=== PATIENT | male | born 1955 | race Caucasian/White ===

== ENCOUNTER 2024-04-01 15:12 | Inpatient (IN) | payer MEDICARE, MEDICAID ==
[~2024-04-01] VITALS: Ht 182.9 cm; Wt 68.7 kg
[2024-04-01] MEDS ORDERED: ACETAMINOPHEN 325 MG TAB PO PRN (16:45)
[2024-04-01 17:00] VITALS: BP 107/68; TEMP 97.9
[2024-04-01 17:42] LABS: INR 1.05
[2024-04-01 18:20] LABS: HEMATOCRIT 46.3 % (42.0-52.0); HEMOGLOBIN 16.3 g/dl (13.5-17.5); MEAN CORPUSCULAR HEMOGLOBIN 30.8 pg (27.0-33.0); MEAN CORPUSCULAR HGB CONC 35.2 g/dl (32.0-36.5); MEAN CORPUSCULAR VOLUME 87.5 fl (80.0-96.0); PLATELET COUNT, AUTOMATED 273 10^3/uL (150-450); RED BLOOD COUNT 5.29 10^6/uL (4.30-6.10); WHITE BLOOD COUNT 15.8 10^3/uL (4.0-10.0)
[2024-04-01] MEDS ORDERED: HOME MED LIST COMPLETE! XX SCH (18:40)
[2024-04-01 18:48] LABS: ALBUMIN 2.8 G/DL (3.2-5.2); ALKALINE PHOSPHATASE 118 U/L (40-129); ALT/SGPT 19 U/L (7.0-40); AST/SGOT 28 U/L (<34); BILIRUBIN,TOTAL 0.3 MG/DL (0.3-1.2); BLOOD UREA NITROGEN 9 MG/DL (9-23); CALCIUM LEVEL 9.4 MG/DL (8.3-10.6); CARBON DIOXIDE LEVEL 31 MMOL/L (20-31); CHLORIDE LEVEL 99 MMOL/L (98-107); CREATININE FOR GFR 0.66 MG/DL (0.70-1.30); GLOMERULAR FILTRATION RATE > 60.0 (>49); GLUCOSE, FASTING 138 MG/DL (74-106); POTASSIUM SERUM 3.2 MMOL/L (3.5-5.1); SODIUM LEVEL 136 MMOL/L (136-145); TOTAL PROTEIN 6.2 G/DL (5.7-8.2)
[2024-04-01] MEDS: NS 1,000 ML IV SCH (18:55)
[2024-04-01 19:40] VITALS: BP 118/68; TEMP 97.7; O2SAT 88
[2024-04-01] MEDS: PANTOPRAZOLE 40MG VIAL IV SCH (20:02)
[2024-04-01] MEDS: POTASSIUM CHLORIDE 10% LIQ 20MEQ/15ML UDC PO ONE (20:02)
[2024-04-01] MEDS: KCL 10MEQ/100ML SWI (KRUN) 10 MEQ in IV 1 EA IV SCH (21:15)
[2024-04-01] MEDS: KETOROLAC 30 MG/ML 1ML VIAL IV ONE (21:15)
[2024-04-01 22:05] VITALS: O2SAT 83
[2024-04-01 22:10] VITALS: O2SAT 91
[2024-04-01 23:00] VITALS: O2SAT 96
[2024-04-01 23:38] VITALS: BP 118/63; TEMP 98; O2SAT 96
[2024-04-02] VITALS (11 sets, daily range): BP systolic 103–130; BP diastolic 60–69; TEMP 97–97.8; O2SAT 90–98
[2024-04-02 06:14] LABS: HEMATOCRIT 43.7 % (42.0-52.0); HEMOGLOBIN 15.3 g/dl (13.5-17.5); MEAN CORPUSCULAR HEMOGLOBIN 30.8 pg (27.0-33.0); MEAN CORPUSCULAR VOLUME 88.1 fl (80.0-96.0); PLATELET COUNT, AUTOMATED 239 10^3/uL (150-450); RED BLOOD COUNT 4.96 10^6/uL (4.30-6.10); WHITE BLOOD COUNT 13.5 10^3/uL (4.0-10.0)
[2024-04-02 06:41] LABS: ALBUMIN 2.5 G/DL (3.2-5.2); ALKALINE PHOSPHATASE 103 U/L (40-129); ALT/SGPT 18 U/L (7.0-40); AST/SGOT 26 U/L (<34); BILIRUBIN,TOTAL 0.4 MG/DL (0.3-1.2); BLOOD UREA NITROGEN 11 MG/DL (9-23); CALCIUM LEVEL 8.9 MG/DL (8.3-10.6); CARBON DIOXIDE LEVEL 27 MMOL/L (20-31); CHLORIDE LEVEL 101 MMOL/L (98-107); CREATININE FOR GFR 0.73 MG/DL (0.70-1.30); GLOMERULAR FILTRATION RATE > 60.0 (>49); GLUCOSE, FASTING 152 MG/DL (74-106); POTASSIUM SERUM 3.8 MMOL/L (3.5-5.1); SODIUM LEVEL 136 MMOL/L (136-145); TOTAL PROTEIN 5.3 G/DL (5.7-8.2)
[2024-04-02 07:45] LABS: CHOLESTEROL LEVEL 118 MG/DL (<200); CHOLESTEROL RISK RATIO 3.52 (<5); HDL CHOLESTEROL 33.5 MG/DL (>40); LDL CHOLESTEROL 67.9 MG/DL (<100); NON-HDL-C 84.5 MG/DL; TRIGLYCERIDES LEVEL 83 MG/DL (<150)
[2024-04-02 08:04] LABS: HEMOGLOBIN A1c 6.4 % (4.0-6.0)
[2024-04-02] MEDS ORDERED: D5W/0.9% SODIUM CHLORIDE 1,000 ML IV ONE (08:20)
[2024-04-02] MEDS ORDERED: GLUCAGON INJ 1MG VIAL SC PRN (08:50)
[2024-04-02] MEDS ORDERED: GLUCOSE 4 GM CHEW PO PRN (08:50)
[2024-04-02] MEDS ORDERED: DEXTROSE 50% 50ML SYRINGE IV PRN (08:50)
[2024-04-02] MEDS: D5W/0.9% SODIUM CHLORIDE 1,000 ML IV SCH (10:56)
[2024-04-02] MEDS: INSULIN LISPRO (NovoLOG) PER UNIT SC SCH (13:22)
[2024-04-02] MEDS: NICOTINE 21MG/24HR 1 EA TRANSDERMAL TD SCH (13:50)
[2024-04-03 03:53] VITALS: BP 123/72; TEMP 97.2; O2SAT 93
[2024-04-03 06:02] LABS: HEMATOCRIT 43.5 % (42.0-52.0); HEMOGLOBIN 15.1 g/dl (13.5-17.5); MEAN CORPUSCULAR HEMOGLOBIN 30.9 pg (27.0-33.0); MEAN CORPUSCULAR HGB CONC 34.7 g/dl (32.0-36.5); PLATELET COUNT, AUTOMATED 222 10^3/uL (150-450); RED BLOOD COUNT 4.89 10^6/uL (4.30-6.10); WHITE BLOOD COUNT 13.2 10^3/uL (4.0-10.0)
[2024-04-03 06:35] LABS: ALBUMIN 2.3 G/DL (3.2-5.2); ALKALINE PHOSPHATASE 93 U/L (40-129); ALT/SGPT 20 U/L (7.0-40); AST/SGOT 23 U/L (<34); BILIRUBIN,TOTAL 0.4 MG/DL (0.3-1.2); BLOOD UREA NITROGEN 11 MG/DL (9-23); CALCIUM LEVEL 8.4 MG/DL (8.3-10.6); CARBON DIOXIDE LEVEL 28 MMOL/L (20-31); CHLORIDE LEVEL 108 MMOL/L (98-107); CREATININE FOR GFR 0.57 MG/DL (0.70-1.30); GLOMERULAR FILTRATION RATE > 60.0 (>49); GLUCOSE, FASTING 194 MG/DL (74-106); POTASSIUM SERUM 3.7 MMOL/L (3.5-5.1); SODIUM LEVEL 139 MMOL/L (136-145); TOTAL PROTEIN 5.2 G/DL (5.7-8.2)
[2024-04-03] MEDS: INSULIN LISPRO (NovoLOG) PER UNIT SC SCH ×2 (07:30→20:06)
[2024-04-03 07:58] VITALS: BP 144/78; TEMP 97.6; O2SAT 94
[2024-04-03 16:25] VITALS: BP 144/82; TEMP 97.9; O2SAT 93
[2024-04-03 19:55] VITALS: BP 136/69; TEMP 97.5; O2SAT 95
[2024-04-04 04:16] VITALS: BP 132/68; TEMP 97.7; O2SAT 97
[2024-04-04 06:32] LABS: HEMATOCRIT 45.3 % (42.0-52.0); HEMOGLOBIN 15.5 g/dl (13.5-17.5); MEAN CORPUSCULAR HEMOGLOBIN 30.6 pg (27.0-33.0); MEAN CORPUSCULAR HGB CONC 34.2 g/dl (32.0-36.5); MEAN CORPUSCULAR VOLUME 89.3 fl (80.0-96.0); PLATELET COUNT, AUTOMATED 234 10^3/uL (150-450); RED BLOOD COUNT 5.07 10^6/uL (4.30-6.10); WHITE BLOOD COUNT 14.3 10^3/uL (4.0-10.0)
[2024-04-04 07:07] LABS: ALBUMIN 2.5 G/DL (3.2-5.2); ALKALINE PHOSPHATASE 98 U/L (40-129); ALT/SGPT 21 U/L (7.0-40); AST/SGOT 19 U/L (<34); BILIRUBIN,TOTAL 0.5 MG/DL (0.3-1.2); BLOOD UREA NITROGEN 12 MG/DL (9-23); CARBON DIOXIDE LEVEL 25 MMOL/L (20-31); CHLORIDE LEVEL 105 MMOL/L (98-107); CREATININE FOR GFR 0.56 MG/DL (0.70-1.30); GLOMERULAR FILTRATION RATE > 60.0 (>49); GLUCOSE, FASTING 136 MG/DL (74-106); POTASSIUM SERUM 3.7 MMOL/L (3.5-5.1); SODIUM LEVEL 140 MMOL/L (136-145); TOTAL PROTEIN 5.4 G/DL (5.7-8.2)
[2024-04-04 07:26] VITALS: BP 130/72; TEMP 97.5; O2SAT 94
[2024-04-04 12:00] VITALS: BP 139/79; TEMP 97.7; O2SAT 96
[2024-04-04 19:42] VITALS: BP 144/89; TEMP 97.2; O2SAT 96
[2024-04-05 04:27] VITALS: BP 145/86; TEMP 97; O2SAT 96
[2024-04-05 06:34] LABS: HEMATOCRIT 45.4 % (42.0-52.0); HEMOGLOBIN 15.7 g/dl (13.5-17.5); MEAN CORPUSCULAR HEMOGLOBIN 30.4 pg (27.0-33.0); MEAN CORPUSCULAR HGB CONC 34.6 g/dl (32.0-36.5); MEAN CORPUSCULAR VOLUME 87.8 fl (80.0-96.0); PLATELET COUNT, AUTOMATED 236 10^3/uL (150-450); RED BLOOD COUNT 5.17 10^6/uL (4.30-6.10)
[2024-04-05 07:01] LABS: ALBUMIN 2.6 G/DL (3.2-5.2); ALKALINE PHOSPHATASE 103 U/L (40-129); ALT/SGPT 21 U/L (7.0-40); AST/SGOT 19 U/L (<34); BILIRUBIN,TOTAL 0.6 MG/DL (0.3-1.2); BLOOD UREA NITROGEN 15 MG/DL (9-23); CARBON DIOXIDE LEVEL 25 MMOL/L (20-31); CHLORIDE LEVEL 103 MMOL/L (98-107); CREATININE FOR GFR 0.55 MG/DL (0.70-1.30); GLOMERULAR FILTRATION RATE > 60.0 (>49); GLUCOSE, FASTING 125 MG/DL (74-106); POTASSIUM SERUM 3.9 MMOL/L (3.5-5.1); SODIUM LEVEL 138 MMOL/L (136-145); TOTAL PROTEIN 5.5 G/DL (5.7-8.2)
[2024-04-05 08:00] VITALS: BP 119/73; TEMP 97.5; O2SAT 97
[2024-04-05 12:00] VITALS: BP 148/87; TEMP 97.5; O2SAT 95
[2024-04-05 20:31] VITALS: BP 134/74; TEMP 97.3
[2024-04-05 20:43] VITALS: BP 129/73; TEMP 97.2; O2SAT 97
[2024-04-06] MEDS: NS 1,000 ML IV SCH (00:38)
[2024-04-06 04:00] VITALS: BP 122/65; TEMP 97; O2SAT 96
[2024-04-06 06:46] LABS: EOS % 0.1 % (0.0-3.0); HEMATOCRIT 47.8 % (42.0-52.0); HEMOGLOBIN 16.1 g/dl (13.5-17.5); LYMPH # 1.3 10^3/uL (1.5-5.0); LYMPH % 12.2 % (24.0-44.0); MEAN CORPUSCULAR HEMOGLOBIN 30.3 pg (27.0-33.0); MEAN CORPUSCULAR HGB CONC 33.7 g/dl (32.0-36.5); MEAN CORPUSCULAR VOLUME 89.8 fl (80.0-96.0); MONO # 0.7 10^3/uL (0.0-0.8); MONO % 6.5 % (2.0-8.0); NEUTROPHILS # 8.4 10^3/uL (1.5-8.5); NEUTROPHILS % 80.4 % (36.0-66.0); PLATELET COUNT, AUTOMATED 243 10^3/uL (150-450); RED BLOOD COUNT 5.32 10^6/uL (4.30-6.10); WHITE BLOOD COUNT 10.5 10^3/uL (4.0-10.0)
[2024-04-06 07:05] LABS: BLOOD UREA NITROGEN 18 MG/DL (9-23); CALCIUM LEVEL 9.1 MG/DL (8.3-10.6); CARBON DIOXIDE LEVEL 27 MMOL/L (20-31); CHLORIDE LEVEL 105 MMOL/L (98-107); CREATININE FOR GFR 0.59 MG/DL (0.70-1.30); GLOMERULAR FILTRATION RATE > 60.0 (>49); GLUCOSE, FASTING 127 MG/DL (74-106); POTASSIUM SERUM 4.1 MMOL/L (3.5-5.1); SODIUM LEVEL 138 MMOL/L (136-145)
[2024-04-06 11:20] VITALS: BP 124/70; TEMP 97.5; O2SAT 97
[2024-04-06] MEDS ORDERED: ISOVUE-370 76% 100ML VIAL As Ordered ONE (11:41)
[2024-04-06 19:50] VITALS: BP 113/71; TEMP 97.7; O2SAT 96
[2024-04-07 03:41] VITALS: BP 113/71; TEMP 97.9; O2SAT 96
[2024-04-07 06:39] LABS: BLOOD UREA NITROGEN 19 MG/DL (9-23); CALCIUM LEVEL 9.2 MG/DL (8.3-10.6); CARBON DIOXIDE LEVEL 24 MMOL/L (20-31); CHLORIDE LEVEL 105 MMOL/L (98-107); CREATININE FOR GFR 0.58 MG/DL (0.70-1.30); GLOMERULAR FILTRATION RATE > 60.0 (>49); GLUCOSE, FASTING 124 MG/DL (74-106); POTASSIUM SERUM 4.3 MMOL/L (3.5-5.1); SODIUM LEVEL 138 MMOL/L (136-145)
[2024-04-07 12:00] VITALS: BP 128/77; TEMP 97.5; O2SAT 96
[2024-04-07 20:14] VITALS: BP 128/77; TEMP 97.5; O2SAT 95
[2024-04-08 04:00] VITALS: BP 134/86; TEMP 97.7; O2SAT 93
[2024-04-08 05:49] LABS: BASO % 0.1 % (0.0-1.0); EOS % 0.2 % (0.0-3.0); HEMATOCRIT 47.1 % (42.0-52.0); HEMOGLOBIN 16.1 g/dl (13.5-17.5); LYMPH # 1.1 10^3/uL (1.5-5.0); LYMPH % 9.5 % (24.0-44.0); MEAN CORPUSCULAR HEMOGLOBIN 30.4 pg (27.0-33.0); MEAN CORPUSCULAR HGB CONC 34.2 g/dl (32.0-36.5); MEAN CORPUSCULAR VOLUME 88.9 fl (80.0-96.0); MONO # 0.7 10^3/uL (0.0-0.8); MONO % 6.1 % (2.0-8.0); NEUTROPHILS # 9.3 10^3/uL (1.5-8.5); NEUTROPHILS % 83.5 % (36.0-66.0); PLATELET COUNT, AUTOMATED 249 10^3/uL (150-450); WHITE BLOOD COUNT 11.1 10^3/uL (4.0-10.0)
[2024-04-08 06:15] LABS: BLOOD UREA NITROGEN 21 MG/DL (9-23); CALCIUM LEVEL 9.1 MG/DL (8.3-10.6); CARBON DIOXIDE LEVEL 27 MMOL/L (20-31); CHLORIDE LEVEL 104 MMOL/L (98-107); CREATININE FOR GFR 0.61 MG/DL (0.70-1.30); GLOMERULAR FILTRATION RATE > 60.0 (>49); GLUCOSE, FASTING 126 MG/DL (74-106); SODIUM LEVEL 139 MMOL/L (136-145)
[2024-04-08 12:00] VITALS: BP 120/71; TEMP 97.5; O2SAT 94
[2024-04-08] MEDS ORDERED: DEXA4TA PO (13:35)
[2024-04-08] MEDS ORDERED: PANT40TA29 PO (13:35)
== END 2024-04-08 15:15 | disposition home health service (06) | DRG 54 ==
LOC: M PCU 16:31 → M MS5PR 04-03 16:39
PROVIDERS: ADMIT Internal Medicine; ATTEND Hospitalist
DX: C79.31 Secondary malignant neoplasm of brain (principal); G93.41 Metabolic encephalopathy; G93.6 Cerebral edema; I61.9 Nontraumatic intracerebral hemorrhage, unspecified; E43 Unspecified severe protein-calorie malnutrition; C34.12 Malignant neoplasm of upper lobe, left bronchus or lung; C78.01 Secondary malignant neoplasm of right lung; C77.1 Secondary and unspecified malignant neoplasm of intrathoracic lymph nodes; C78.6 Secondary malignant neoplasm of retroperitoneum and peritoneum; C78.89 Secondary malignant neoplasm of other digestive organs; C79.71 Secondary malignant neoplasm of right adrenal gland; C78.7 Secondary malignant neoplasm of liver and intrahepatic bile duct; R64 Cachexia; R26.81 Unsteadiness on feet; E11.9 Type 2 diabetes mellitus without complications; J43.9 Emphysema, unspecified; R13.10 Dysphagia, unspecified; E86.0 Dehydration; Z68.20 Body mass index [BMI] 20.0-20.9, adult; Z87.891 Personal history of nicotine dependence

== ENCOUNTER 2024-04-13 08:57 | Outpatient (RCR) | payer MEDICAID, MEDICARE, OTHER ==
[~2024-04-13 08:57] MED LIST: DEXA4TA PO; PANT40TA29 PO
[2024-04-18] MEDS ORDERED: DEXA1TA PO (11:02)
== END 2024-04-16 ==
LOC: M ONCR 08:57
PROVIDERS: ATTEND General Practice
DX: Z51.0 Encounter for antineoplastic radiation therapy (principal); C79.31 Secondary malignant neoplasm of brain

== ENCOUNTER 2024-04-19 09:30 | Outpatient (RCR) | payer MEDICARE ==
[~2024-04-19 09:30] MED LIST changes: +DEXA1TA PO
[2024-04-21] MEDS ORDERED: OXYC1TAB23 PO (12:28)
[2024-04-27] MEDS ORDERED: LORA1TAB23 PO (10:00)
== END 2024-05-17 ==
LOC: M ONCR 09:30
PROVIDERS: ATTEND General Practice
DX: Z51.0 Encounter for antineoplastic radiation therapy (principal); C79.31 Secondary malignant neoplasm of brain

== ENCOUNTER → 2024-05-13 | Outpatient (CLI) | payer MEDICARE ==
[~2024-05-13] VITALS: Ht 182.9 cm; Wt 59.0 kg
[~2024-05-13] MED LIST changes: +LIDOCAINE 1% MDV 20ML VIAL As Ordered ONE; +LORA1TAB23 PO; +NS (Normal Saline) 0.9% 1,000 ML IV SCH; +OXYC1TAB23 PO; +ceFAZolin 2 GM/D5W 50 ML IV BAG As Ordered ONE; +ceFAZolin SOD 2 GM in IV 1 EA IV ONE
[2024-05-13 09:40] VITALS: TEMP 97.9
[2024-05-13 11:30] VITALS: BP 117/60; O2SAT 97
== END ==
LOC: M IRPRO 09:27
PROVIDERS: ATTEND Internal Medicine Medical Oncology
DX: C34.90 Malignant neoplasm of unspecified part of unspecified bronchus or lung (principal)
CPT/HCPCS: 36561; C1894; J0690; J1642

== ENCOUNTER 2024-05-19 12:26 | Outpatient (RCR) | payer MEDICARE ==
[2024-04-20 10:27] VITALS: BP 121/85; O2SAT 96
[2024-04-20 11:39] LABS: BASO % 0.1 % (0.0-1.0); EOS # 0.3 10^3/uL (0.0-0.5); EOS % 1.7 % (0.0-3.0); HEMATOCRIT 50.5 % (42.0-52.0); HEMOGLOBIN 17.1 g/dl (13.5-17.5); LYMPH # 1.2 10^3/uL (1.5-5.0); LYMPH % 7.8 % (24.0-44.0); MEAN CORPUSCULAR HEMOGLOBIN 30.9 pg (27.0-33.0); MEAN CORPUSCULAR HGB CONC 33.9 g/dl (32.0-36.5); MEAN CORPUSCULAR VOLUME 91.3 fl (80.0-96.0); MONO # 1.2 10^3/uL (0.0-0.8); MONO % 7.4 % (2.0-8.0); NEUTROPHILS # 12.8 10^3/uL (1.5-8.5); NEUTROPHILS % 82.4 % (36.0-66.0); PLATELET COUNT, AUTOMATED 225 10^3/uL (150-450); RED BLOOD COUNT 5.53 10^6/uL (4.30-6.10); WHITE BLOOD COUNT 15.5 10^3/uL (4.0-10.0)
[2024-04-20 12:12] LABS: ALBUMIN 2.2 G/DL (3.2-5.2); ALKALINE PHOSPHATASE 141 U/L (40-129); ALT/SGPT 12 U/L (7.0-40); AST/SGOT 13 U/L (<34); BILIRUBIN,TOTAL 0.8 MG/DL (0.3-1.2); BLOOD UREA NITROGEN 18 MG/DL (9-23); CALCIUM LEVEL 9.6 MG/DL (8.3-10.6); CARBON DIOXIDE LEVEL 32 MMOL/L (20-31); CHLORIDE LEVEL 98 MMOL/L (98-107); GLOMERULAR FILTRATION RATE > 60.0 (>49); GLUCOSE, FASTING 191 MG/DL (74-106); SODIUM LEVEL 135 MMOL/L (136-145); TOTAL PROTEIN 5.9 G/DL (5.7-8.2)
[2024-04-20 12:14] LABS: FREE T4 1.08 NG/DL (0.89-1.76); THYROID STIMULATING HORMONE 2.296 uIU/ML (0.55-4.78)
[2024-04-20 12:17] LABS: INR 1.26; PARTIAL THROMBOPLASTIN TIME 31.4 SECONDS (24.8-34.2); PROTHROMBIN TIME 16.1 SECONDS (12.5-14.5)
[2024-04-20 12:21] LABS: HEPATITIS B SURFACE ANTIBODY NEGATIVE (POSITIVE)
[2024-04-20 12:33] LABS: HEPATITIS B SURFACE ANTIGEN NEGATIVE (NEGATIVE)
[2024-04-20 12:54] LABS: HEPATITIS B CORE ANTIBODY IGM NEGATIVE (NEGATIVE)
[2024-04-27 08:33] LABS: BASO % 0.1 % (0.0-1.0); EOS # 0.2 10^3/uL (0.0-0.5); EOS % 1.9 % (0.0-3.0); HEMOGLOBIN 15.7 g/dl (13.5-17.5); LYMPH # 1.3 10^3/uL (1.5-5.0); LYMPH % 13.5 % (24.0-44.0); MEAN CORPUSCULAR HEMOGLOBIN 30.5 pg (27.0-33.0); MEAN CORPUSCULAR HGB CONC 33.4 g/dl (32.0-36.5); MEAN CORPUSCULAR VOLUME 91.4 fl (80.0-96.0); MONO # 0.7 10^3/uL (0.0-0.8); MONO % 7.3 % (2.0-8.0); NEUTROPHILS # 7.3 10^3/uL (1.5-8.5); NEUTROPHILS % 76.8 % (36.0-66.0); PLATELET COUNT, AUTOMATED 245 10^3/uL (150-450); RED BLOOD COUNT 5.14 10^6/uL (4.30-6.10); WHITE BLOOD COUNT 9.5 10^3/uL (4.0-10.0)
[2024-04-27 08:50] VITALS: BP 105/76; O2SAT 97
[2024-04-27 08:57] LABS: ALKALINE PHOSPHATASE 124 U/L (40-129); ALT/SGPT 24 U/L (7.0-40); AST/SGOT 23 U/L (<34); BILIRUBIN,TOTAL 0.4 MG/DL (0.3-1.2); BLOOD UREA NITROGEN 19 MG/DL (9-23); CALCIUM LEVEL 9.3 MG/DL (8.3-10.6); CARBON DIOXIDE LEVEL 35 MMOL/L (20-31); CHLORIDE LEVEL 100 MMOL/L (98-107); GLOMERULAR FILTRATION RATE > 60.0 (>49); GLUCOSE, FASTING 154 MG/DL (74-106); POTASSIUM SERUM 4.2 MMOL/L (3.5-5.1); SODIUM LEVEL 139 MMOL/L (136-145); TOTAL PROTEIN 5.6 G/DL (5.7-8.2)
[2024-04-27 09:00] LABS: FREE T3 2.8 PG/ML (2.3-4.2); THYROID STIMULATING HORMONE 1.653 uIU/ML (0.55-4.78)
[2024-04-27] MEDS: FOSAPREPITANT 150 MG, VIAL 2 BAG 13MM ADAPTER 1 EACH in NS 250 ML IV SCH (10:21)
[2024-04-27] MEDS: PALONOSETRON 0.25MG/5ML VIAL (ALOXI) IV SCH (10:22)
[2024-04-27] MEDS: NS IV SCH ×3 (11:14→13:25)
[2024-04-27] MEDS: ATEZOLIZUMAB IV SCH (11:14)
[2024-04-27] MEDS: CARBOPLATIN IV SCH (12:27)
[2024-04-27] MEDS: ETOPOSIDE IV SCH (13:25)
[2024-04-28 13:10] VITALS: BP 123/75; O2SAT 96
[2024-04-28] MEDS: dexAMETHasone 4 MG TAB PO SCH (13:23)
[2024-04-28] MEDS: PROCHLORPERAZINE 5MG TAB PO SCH (13:23)
[2024-04-28] MEDS: NS IV SCH (13:55)
[2024-04-28] MEDS: ETOPOSIDE IV SCH (13:55)
[2024-04-29 12:45] VITALS: BP 122/64; O2SAT 97
[2024-04-29] MEDS: dexAMETHasone 4 MG TAB PO SCH (13:01)
[2024-04-29] MEDS: PROCHLORPERAZINE 5MG TAB PO SCH (13:01)
[2024-04-29] MEDS: NS IV SCH (13:13)
[2024-04-29] MEDS: ETOPOSIDE IV SCH (13:13)
[2024-05-16 14:49] LABS: BASO % 0.8 % (0.0-1.0); EOS % 0.2 % (0.0-3.0); HEMATOCRIT 36.5 % (42.0-52.0); HEMOGLOBIN 12.3 g/dl (13.5-17.5); LYMPH # 2.4 10^3/uL (1.5-5.0); LYMPH % 45.1 % (24.0-44.0); MEAN CORPUSCULAR HEMOGLOBIN 30.8 pg (27.0-33.0); MEAN CORPUSCULAR HGB CONC 33.7 g/dl (32.0-36.5); MEAN CORPUSCULAR VOLUME 91.3 fl (80.0-96.0); MONO # 1.1 10^3/uL (0.0-0.8); MONO % 21.7 % (2.0-8.0); NEUTROPHILS # 1.5 10^3/uL (1.5-8.5); NEUTROPHILS % 27.6 % (36.0-66.0); PLATELET COUNT, AUTOMATED 284 10^3/uL (150-450); WHITE BLOOD COUNT 5.3 10^3/uL (4.0-10.0)
[2024-05-16 15:20] LABS: MAGNESIUM LEVEL 1.8 MG/DL (1.8-2.4)
[2024-05-16 15:22] LABS: ALBUMIN 2.4 G/DL (3.2-5.2); ALKALINE PHOSPHATASE 137 U/L (40-129); ALT/SGPT 22 U/L (7.0-40); AST/SGOT 14 U/L (<34); BILIRUBIN,TOTAL 0.2 MG/DL (0.3-1.2); BLOOD UREA NITROGEN 14 MG/DL (9-23); CALCIUM LEVEL 8.8 MG/DL (8.3-10.6); CARBON DIOXIDE LEVEL 28 MMOL/L (20-31); CHLORIDE LEVEL 103 MMOL/L (98-107); CREATININE FOR GFR 0.39 MG/DL (0.70-1.30); GLOMERULAR FILTRATION RATE > 60.0 (>49); GLUCOSE, FASTING 297 MG/DL (74-106); POTASSIUM SERUM 4.2 MMOL/L (3.5-5.1); SODIUM LEVEL 137 MMOL/L (136-145); TOTAL PROTEIN 5.7 G/DL (5.7-8.2)
[2024-05-16 15:25] LABS: FREE T4 1.01 NG/DL (0.89-1.76); THYROID STIMULATING HORMONE 0.634 uIU/ML (0.55-4.78)
[2024-05-16 15:27] LABS: FREE T3 2.9 PG/ML (2.3-4.2)
[2024-05-17 08:40] VITALS: BP 109/69; O2SAT 96
[2024-05-17] MEDS: PALONOSETRON 0.25MG/5ML VIAL (ALOXI) IV SCH (09:25)
[2024-05-17] MEDS: FOSAPREPITANT 150 MG, VIAL 2 BAG 13MM ADAPTER 1 EACH in NS 250 ML IV SCH (09:25)
[2024-05-17] MEDS: ATEZOLIZUMAB IV SCH (10:08)
[2024-05-17] MEDS: NS IV SCH ×3 (10:08→11:46)
[2024-05-17] MEDS: CARBOPLATIN IV SCH (10:58)
[2024-05-17] MEDS: ETOPOSIDE IV SCH (11:46)
[~2024-05-19] VITALS: Ht 185.4 cm; Wt 65.0 kg
[~2024-05-19 12:26] MED LIST changes: -LIDOCAINE 1% MDV 20ML VIAL As Ordered ONE; -NS (Normal Saline) 0.9% 1,000 ML IV SCH; +PROCHLORPERAZINE 5MG TAB PO SCH; +SODIUM CHLORIDE 0.9% INJ 10 ML SYR IV PRN; -ceFAZolin 2 GM/D5W 50 ML IV BAG As Ordered ONE; -ceFAZolin SOD 2 GM in IV 1 EA IV ONE; +dexAMETHasone 4 MG TAB PO SCH
[2024-05-19 12:40] VITALS: BP 85/63; O2SAT 94
[2024-05-19] MEDS: PROCHLORPERAZINE 5MG TAB PO SCH (13:17)
[2024-05-19] MEDS: dexAMETHasone 4 MG TAB PO SCH (13:17)
[2024-05-19] MEDS: NS 500 ML IV ONE (13:18)
[2024-05-19] MEDS: ETOPOSIDE IV SCH (14:14)
[2024-05-19] MEDS: NS IV SCH (14:14)
[2024-05-19] MEDS ORDERED: PROC10TA5 PO (15:16)
[2024-05-19] MEDS ORDERED: ONDA-84 PO (15:16)
[2024-05-19] MEDS: SODIUM CHLORIDE 0.9% INJ 10 ML SYR IV PRN (15:28)
[2024-05-20] MEDS ORDERED: PROCHLORPERAZINE 5MG TAB PO SCH
[2024-05-20] MEDS ORDERED: dexAMETHasone 4 MG TAB PO SCH
[2024-05-20] MEDS ORDERED: SODIUM CHLORIDE 0.9% INJ 10 ML SYR IV PRN (08:00)
== END 2024-05-20 | disposition expired ==
LOC: M ONCM 12:26
PROVIDERS: ATTEND Internal Medicine Medical Oncology
DX: C34.12 Malignant neoplasm of upper lobe, left bronchus or lung (principal); C7B.8 Other secondary neuroendocrine tumors; R91.8 Other nonspecific abnormal finding of lung field; G89.3 Neoplasm related pain (acute) (chronic); F41.9 Anxiety disorder, unspecified; K76.9 Liver disease, unspecified; N40.0 Benign prostatic hyperplasia without lower urinary tract symptoms; N32.89 Other specified disorders of bladder; K86.89 Other specified diseases of pancreas; R19.09 Other intra-abdominal and pelvic swelling, mass and lump; E27.9 Disorder of adrenal gland, unspecified; F17.210 Nicotine dependence, cigarettes, uncomplicated; Z79.899 Other long term (current) drug therapy; Z92.3 Personal history of irradiation; Z51.11 Encounter for antineoplastic chemotherapy; R22.40 Localized swelling, mass and lump, unspecified lower limb; G47.8 Other sleep disorders
CPT/HCPCS: 36415; 36591; 80053; 83735; 84439; 84443; 84481; 85025; 85610; 85730; 86705; 86706; 87340; 96361; 96367; 96375; 96413; 96415; 96417; G0463; J1100; J1453; J1642; J2469; J9022; J9045; J9181